=== PATIENT | female | born 1955 | race Caucasian/White ===

== ENCOUNTER 2019-12-20 06:36 | Day surgery (SDC) | payer OTHER ==
[~2019-12-20] VITALS: Ht 160 cm; Wt 85.7 kg
[~2019-12-20 06:36] MED LIST: CALTRATE 600 +1 EAC1 PO; DOCUSATE CALCI240 MG PO; ECHINACEA HERB380 MG PO; ESTRACE42.5 GM TOP; FAMOTIDINE40 MG PO; GARLIC1 EAC1 PO; GLUCOSAMINE HC500 MG PO; GOLDEN SEAL RO535 MG PO; KELP150 MC1 PO; KELP150 MCG PO; LEVOTHYROXINE75 MCG PO; LIPITOR10 MG; LORATADINE10 MG PO; OMEPRAZOLE20 MG PO; PANTOPRAZOLE SO40 MG PO; PURE L-TYROSIN500 MG PO; SIMVASTATIN10 MG PO; TURMERIC 450-51 EACH PO; VITAMIN C100 MG PO; VITAMIN D-32000 UNIT PO; ZINC50 MG PO
--- NOTE | 2019-12-20 08:14 | NUR ---
12/20/19 0814 Melisa Leiva 0809-PATIENT ARRIVED TO PACU ON 2L NC REACTIVE TO VERBAL STIMULI OPENING EYES DROWSY. DENIES PAIN OR NAUSEA. IVF INFUSING. LAYING LEFT LATERAL.
--- NOTE | 2019-12-20 10:30 | OR ---
[facility] [address], [place] [address] Signed DATE OF OPERATION: 12/20/2019 SURGEON: Heidi Arteaga MD PREOPERATIVE DIAGNOSES: 1. Personal history of colonic polyps (2014). 2. Diverticulosis. 3. Intermittent rectal bleeding. 4. Intermittent constipation. 5. Father with colon cancer, age 62. 6. Mother with colon cancer, age 52. POSTOPERATIVE DIAGNOSES: 1. A 3 mm polyps x7 distal rectum/5 cm. 2. Bzkgpmn-re-tbhrhjhf sigmoid diverticulosis. 3. Tofcuxm-gi-nyqmfkrq internal hemorrhoids. PROCEDURE: Colonoscopy with hot biopsy. ESTIMATED BLOOD LOSS: None. INDICATIONS: Nara is a 64-year-old female, who was asked to see me for a followup colonoscopy back in [place] in 2014, she had colonic polyps removed and was told she had diverticulosis. They asked her to follow up in 5 years. She talks about intermittent constipation and intermittent rectal bleeding. She explained that her mom was diagnosed with colon cancer at age 52. Father had what sounds like rectal cancer at age 60 with a colostomy, he ended up dying a number of years later from the cancer. In the office, I gave Nara and her a pamphlet on colonoscopy. Nara reminded me I just helped her with the colonoscopy a week or so prior to that. Consequently, they are familiar with colonoscopy along with its risks including, but not limited to gas bloating, crampy abdominal pain, bleeding, perforation requiring surgery, and missed diagnosis. We also reviewed the written instructions for the bowel prep line by line. She understands the need for IV conscious sedation. She told me she gets sick with anesthesia, so we did give her some Zofran preoperatively. She had expressed understanding and wished to proceed. PROCEDURE NOTE: Electronically Signed By: HEIDI ARTEAGA MD 12/20/19 1030 PATIENT NAME: NARA RUBALCAVA OPERATIVE REPORT DATE OF : 55 REPORT #: [id number] PHYSICIAN: HEIDI ARTEAGA MD PCP: LILA MORALES MD REPORT IS CONFIDENTIAL AND NOT TO BE RELEASED WITHOUT AUTHORIZATION [facility] [address], [place] [address] Signed Nara was taken into our endoscopy suite and placed in the left lateral decubitus position. She was given a total of 175 mcg of fentanyl, 9 mg of Versed to cover the case. She was moved around and moaning some during the procedure. She has recalled that procedure she probably should consider monitored anesthesia care with propofol. A digital rectal exam had been done and it was unremarkable. The scope had been advanced under direct visualization. Fortunately, her prep was good. A couple of areas are liquid stool, most of that was suctioned out. It took a while to get through her sigmoid colon and her splenic flexure has quite a bit of blue discoloration. It took a few minutes to get over the hepatic flexure, and then down into the cecum itself. We could see the appendiceal orifice and the ileocecal valve. We withdrew the scope. We had taken pictures throughout for photodocumentation. She does have diverticula in her sigmoid colon. They were moderate in size, moderate in number, and scattered about. In the rectum, we did remove several tiny polyps in the distal rectum. She does have qzeiiys-xf-ddevciez internal hemorrhoids on retroflexion of the scope. After this, the gas was suctioned out, the colonoscope removed. Nara tolerated the procedure well. RECOMMENDATIONS: I will see Eveline back in my office in 7 to 14 days to review her results. If she has recall of this procedure, she should consider propofol infusion in the future. Heidi Arteaga MD ALB/MODL /[id number] cc: MD Mark Rice MD Malcolm Townsley, MD Copies: HEIDI ARTEAGA MD, ROBERT C MD Electronically Signed By: HEIDI ARTEAGA MD 12/20/19 1030 PATIENT NAME: NARA RUBALCAVA OPERATIVE REPORT DATE OF : 55 REPORT #: [id number] PHYSICIAN: HEIDI ARTEAGA MD PCP: LILA MORALES MD REPORT IS CONFIDENTIAL AND NOT TO BE RELEASED WITHOUT AUTHORIZATION [address] [place], [place] [address] Signed CARMEN,LILA MD ~ Electronically Signed By: HEIDI ARTEAGA MD 12/20/19 1030 PATIENT NAME: NARA RUBALCAVA OPERATIVE REPORT DATE OF : 55 REPORT #: [id number] PHYSICIAN: HEIDI ARTEAGA MD PCP: LILA MORALES MD REPORT IS CONFIDENTIAL AND NOT TO BE RELEASED WITHOUT AUTHORIZATION
--- NOTE | 2019-12-21 16:22 | PATH ---
[facility] [address], [place] [address] Signed SPECIMEN(S): A RECTAL POLYP AT 5 CM SPECIMEN SOURCE: A. RECTAL POLYP AT 5 CM CLINICAL HISTORY: Colonoscopy. History of polyp, history of diverticulosis. Postop: Internal hemorrhoids, rectal polyp, diverticulosis. MICROSCOPIC DESCRIPTION: Histologic sections of all submitted blocks are examined by light microscopy. These findings, together with the gross examination, support the pathologic diagnosis. FINAL PATHOLOGIC DIAGNOSIS: Rectum, polyp at 5 cm, polypectomy: - Fragments of hyperplastic polyp. - Negative for dysplasia or malignancy. NAL:caw:C2NR GROSS DESCRIPTION: The specimen, labeled "PO, rectal polyp at 5 cm," is received in formalin and consists of six gipson soft tissue fragments that measure 0.2 cm in greatest dimension. The specimen is entirely submitted in cassette (A1). JS (under the direct supervision of a pathologist) The Gross Description was prepared using a voice recognition system. The report was reviewed for accuracy; however, sound-alike word errors, addition and/or deletions may occur. If there is any question about this report, please contact Client Services. PERFORMING LABORATORY: The technical component was performed by [facility], [address] [place] [id number] (Scheduling Representative: Terri Crews MD; CLIA# [id number]). [facility], [address] [address] (CLIA# [id number]). Diagnostician: Sienna Flowers MD Pathologist Electronically Signed 12/21/2019 PATIENT NAME: TAMELA RUBALCAVA PATHOLOGY DATE OF : 55 REPORT #: [id number] PHYSICIAN: DEBBY PATHOLOGY PCP: LILA MORALES MD REPORT IS CONFIDENTIAL AND NOT TO BE RELEASED WITHOUT AUTHORIZATION [address] [address] Signed Copies: ~ PATIENT NAME: TAMELA RUBALCAVA PATHOLOGY DATE OF : 55 REPORT #: [id number] PHYSICIAN: DEBBY PATHOLOGY PCP: LILA MORALES MD REPORT IS CONFIDENTIAL AND NOT TO BE RELEASED WITHOUT AUTHORIZATION
== END 2019-12-20 08:57 | disposition home or self-care (01) ==
LOC: OPS 06:36 → DS 06:36 → OPS 06:45
PROVIDERS: ATTEND Colon & Rectal Surgery
PROC: 0DBP8ZZ Excision of Rectum, Via Natural or Artificial Opening Endoscopic (ICD-10-PCS; principal; 2019-12-20 06:45)
DX: K62.1 Rectal polyp (principal); K64.8 Other hemorrhoids; K57.30 Diverticulosis of large intestine without perforation or abscess without bleeding; K21.9 Gastro-esophageal reflux disease without esophagitis; E78.2 Mixed hyperlipidemia; E03.9 Hypothyroidism, unspecified; G47.33 Obstructive sleep apnea (adult) (pediatric); Z80.0 Family history of malignant neoplasm of digestive organs; Z86.010 Personal history of colon polyps; Z79.899 Other long term (current) drug therapy; Z87.891 Personal history of nicotine dependence; Z88.5 Allergy status to narcotic agent; Z88.8 Allergy status to other drugs, medicaments and biological substances
CPT/HCPCS: 99153; G0500; J2250; J2405; J3010; J7121

== ENCOUNTER 2020-08-28 06:36 | Day surgery (SDC) | payer MEDICARE, OTHER ==
[~2020-08-28] VITALS: Ht 157.5 cm; Wt 89.1 kg
[~2020-08-28 06:36] MED LIST changes: +CYMBALTA20 MG PO; +PEPCID40 MG PO
[2020-08-28] MEDS ORDERED: MAALOX ADVANCE355 ML PO (07:02)
--- NOTE | 2020-08-28 08:16 | NUR ---
08/28/20 0816 Sarika Tran 0750 PT ARRIVED IN PACU SLEEPY WITH NO C/O'S. ABD SOFT. 0800 SITTING UP IN BED SIPPING ON GRAPE JUICE. 0805 AT BEDSIDE TALKING WITH PT. 0815 GETTING DRESSED WITH STAND BY ASSIST.
--- NOTE | 2020-08-28 11:23 | OR ---
[facility] [address] [place], [place] [address] Signed DATE OF OPERATION: 08/28/2020 SURGEON: Heidi Arteaga MD PREOPERATIVE DIAGNOSES: 1. Gastroesophageal reflux disease. 2. Hiatal hernia. 3. Intermittent mild esophageal dysphagia. 4. Brother with esophageal cancer. POSTOPERATIVE DIAGNOSES: 1. Small hiatal hernia (38-35 cm). 2. Minimal distal esophagitis. 3. Minimal diffuse gastritis. PROCEDURES: EGD with CLOtest and biopsies of the antrum and GE junction. ESTIMATED BLOOD LOSS: None. INDICATIONS: Nara is a 65-year-old female, asked to see me for upper endoscopy. Apparently, she has been on Prilosec twice a day for over 20 years. Her primary care provider wanted her to move back to Pepcid. She then had an escalation in her symptoms namely acid reflux, but occasionally she has esophageal dysphagia. However, it is quite mild. She is known to have a hiatal hernia. Her brother had esophageal cancer. We think she was H pylori negative in the past. I gave her a booklet in the office on upper endoscopy. She recalls the test quite nicely. She understands there is risk including, but not limited to gas bloating, crampy abdominal pain, bleeding, perforation requiring surgery, and missed diagnosis. She also understands the need for IV conscious sedation. She had expressed understanding and wished to proceed. PROCEDURE NOTE: Nara was taken into our endoscopy suite and placed in the supine semi-recumbent position. The posterior oropharynx was anesthetized with Hurricaine spray. A bite block was utilized for the case. She was given 4 mg of Versed and 100 mcg of fentanyl to cover the case. The adult gastroscope had been introduced and advanced out into the third portion of the duodenum under direct visualization of camera without difficulty. The duodenum and pyloric channel were unremarkable. Nara may have some level of Electronically Signed By: HEIDI ARTEAGA MD 08/28/20 1123 PATIENT NAME: NARA RUBALCAVA OPERATIVE REPORT DATE OF : 55 REPORT #: [id number] PHYSICIAN: HEIDI ARTEAGA MD PCP: OSCAR MORALES MD REPORT IS CONFIDENTIAL AND NOT TO BE RELEASED WITHOUT AUTHORIZATION [facility] [address] [place], [place] [address] Signed sleep apnea. She is either stimuli or she is a bit awake and moving around. She had very mild erythematous changes in the stomach. We took a biopsy of the antrum for CLOtest as well as pathologic review. Otherwise, the incisura body and fundus of the stomach were unremarkable. Upon retroflexion of scope, we could see a small hiatal hernia. The scope was withdrawn up through the area of the GE junction, which is compliant without stricture. We measured out the hiatal hernia the best we could, although she was moving. It runs roughly 38 back to 35 cm. She had a little irritation along the Z-line and some very mild distal esophagitis. We biopsied that for pathologic review. The middle and upper esophagus were unremarkable. After this, the gas was suctioned out and the gastroscope removed. Overall, Eveline tolerated the procedure quite well. RECOMMENDATIONS: I will see Nara back in my office in 7 to 14 days to review her results. Heidi Arteaga MD ALB/MODL /[id number] cc: MD Oscar Rice MD Copies: HEIDI ARTEAGA MD, MALCOLM MD ~ Electronically Signed By: HEIDI ARTEAGA MD 08/28/20 1123 PATIENT NAME: NARA RUBALCAVA OPERATIVE REPORT DATE OF : 55 REPORT #: [id number] PHYSICIAN: HEIDI ARTEAGA MD PCP: OSCAR MORALES MD REPORT IS CONFIDENTIAL AND NOT TO BE RELEASED WITHOUT AUTHORIZATION
--- NOTE | 2020-08-29 12:07 | PATH ---
[facility] [address] [place], [place] [address] Signed SPECIMEN(S): A ANTRUM SPECIMEN(S): B GE JUNCTION SPECIMEN SOURCE: A. ANTRUM B. GE JUNCTION CLINICAL HISTORY: Esophagogastroduodenoscopy with biopsy. Dysphagia, epigastric pain/mild gastritis, hiatal hernia, mild distal esophagitis. MICROSCOPIC DESCRIPTION: Histologic sections of all submitted blocks are examined by light microscopy. These findings, together with the gross examination, support the pathologic diagnosis. FINAL PATHOLOGIC DIAGNOSIS: A. Stomach, antrum, biopsy: - Antral/oxyntic mucosa with minimal chronic, inactive gastritis. - Negative for Helicobacter organisms on HE stain. - Negative for dysplasia or malignancy. B. Gastroesophageal junction, biopsy: - Squamous mucosa with changes consistent with reflux esophagitis. - Negative for intestinal metaplasia, dysplasia, or malignancy. NAL:cml:C2NR GROSS DESCRIPTION: Two specimens are received in two containers, labeled "Warner." A. The specimen, labeled and designated "Warner, antrum biopsy," is received in formalin and consists of one gipson soft tissue fragment that measures up to 0.2 cm in greatest dimension. The specimen is entirely submitted in cassette (A1). B. The specimen, labeled and designated "Warner, GE junction biopsy," is received in formalin and consists of one gipson soft tissue fragment that measures 0.3 cm in greatest dimension. The specimen is entirely submitted in cassette (B1). VB (under the direct supervision of a pathologist) The Gross Description was prepared using a voice recognition system. The report was reviewed for accuracy; however, sound-alike word errors, addition and/or deletions may occur. If there is any question about this report, please contact Client Services. PATIENT NAME: TAMELA RUBALCAVA PATHOLOGY DATE OF : 55 REPORT #: [id number] PHYSICIAN: DEBBY NAVARRO PCP: LILA MORALES MD REPORT IS CONFIDENTIAL AND NOT TO BE RELEASED WITHOUT AUTHORIZATION [facility] [address] [place] [address] Signed PERFORMING LABORATORY: The technical component was performed by [place] [address] (Special Education Curriculum Specialist: Terri Crews MD; CLIA# [id number]). Professional interpretation was performed by [facility], [address] [address] (CLIA# [id number]). Diagnostician: Sienna Flowers MD Pathologist Electronically Signed 08/29/2020 Copies: ~ PATIENT NAME: TAMELA RUBALCAVA PATHOLOGY DATE OF : 55 REPORT #: [id number] PHYSICIAN: DEBBY NAVARRO PCP: LILA MORALES MD REPORT IS CONFIDENTIAL AND NOT TO BE RELEASED WITHOUT AUTHORIZATION
== END 2020-08-28 08:25 | disposition home or self-care (01) ==
LOC: OPS 06:36 → DS 06:46 → OPS 08:25
PROVIDERS: ATTEND Colon & Rectal Surgery
PROC: 0DB78ZX Excision of Stomach, Pylorus, Via Natural or Artificial Opening Endoscopic, Diagnostic (ICD-10-PCS; 2020-08-28)
PROC: 0DB48ZX Excision of Esophagogastric Junction, Via Natural or Artificial Opening Endoscopic, Diagnostic (ICD-10-PCS; principal; 2020-08-28 06:45)
DX: K21.00 Gastro-esophageal reflux disease with esophagitis, without bleeding (principal); K29.50 Unspecified chronic gastritis without bleeding; K44.9 Diaphragmatic hernia without obstruction or gangrene; E78.00 Pure hypercholesterolemia, unspecified; E03.9 Hypothyroidism, unspecified; K57.30 Diverticulosis of large intestine without perforation or abscess without bleeding; M17.0 Bilateral primary osteoarthritis of knee; Z87.19 Personal history of other diseases of the digestive system; Z87.891 Personal history of nicotine dependence; Z88.4 Allergy status to anesthetic agent; Z88.5 Allergy status to narcotic agent; G47.30 Sleep apnea, unspecified; Z85.3 Personal history of malignant neoplasm of breast; Z92.21 Personal history of antineoplastic chemotherapy; Z92.3 Personal history of irradiation; Z80.0 Family history of malignant neoplasm of digestive organs
CPT/HCPCS: 86677; 88305; G0500; J2250; J3010; J7121

== ENCOUNTER 2024-11-03 11:00 | Day surgery (SDC) | payer MEDICARE ==
[~2024-11-03] VITALS: Ht 157.5 cm; Wt 76.0 kg
[~2024-11-03 11:00] MED LIST changes: +AZO BLADDER CO300 MG PO; -ESTRACE42.5 GM TOP; +ESTRACE42.5 GM VAGINAL; +IBLOOD GLUCOSE TEST STRIP 1 EA TEST VI PRN; +LACTATED RINGER'S 1,000 ML IV SCH; +LIDOCAINE HCL 1% 5 ML SDV INJ ONE; -LIPITOR10 MG; +LIPITOR10 MG PO; +MAALOX ADVANCE355 ML PO; +PRILOSEC OTC20 MG PO
[2024-11-03 11:30] VITALS: BP 134/70
[2024-11-03] MEDS ORDERED: AZO BLADDER CO300 MG PO (11:34)
--- NOTE | 2024-11-03 14:30 | NUR ---
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 pt has had a wait bsc was placed beside bed as she didnt feel she could make it to br. updated with wait.
[2024-11-03] MEDS ORDERED: LIDOCAINE HCL 2% 5 ML SDV ONE (15:34)
[2024-11-03 16:06] VITALS: BP 114/67
--- NOTE | 2024-11-03 16:42 | NUR ---
11/03/24 1642 Sheets,Heike 1529 PT ARRIVED TO PACU ON 6L VIA MASK PT ASLEEP AND RESP EVEN AND UNLABORED.
== END 2024-11-03 16:23 | disposition home or self-care (01) ==
LOC: DS 11:00
PROVIDERS: ATTEND Surgery
PROC: 0DJD8ZZ Inspection of Lower Intestinal Tract, Via Natural or Artificial Opening Endoscopic (ICD-10-PCS; principal; 2024-11-03 12:00)
DX: Z12.11 Encounter for screening for malignant neoplasm of colon (principal); K57.30 Diverticulosis of large intestine without perforation or abscess without bleeding; K21.9 Gastro-esophageal reflux disease without esophagitis; E03.9 Hypothyroidism, unspecified; E78.00 Pure hypercholesterolemia, unspecified; Z80.0 Family history of malignant neoplasm of digestive organs; Z86.0100 Personal history of colon polyps, unspecified; Z87.891 Personal history of nicotine dependence; Z79.890 Hormone replacement therapy; Z79.899 Other long term (current) drug therapy; Z90.49 Acquired absence of other specified parts of digestive tract
CPT/HCPCS: J2003; J2704